=== PATIENT | female | born 1995 | race African-American/Black ===

== ENCOUNTER 2017-02-16 11:09 | Observation (INO) | payer MEDICAID ==
[~2017-02-16] VITALS: Ht 160 cm; Wt 113.4 kg
[2017-02-16 12:36] LABS: CLARITY URINE CLEAR (CLEAR); COLOR URINE YELLOW (YELLOW); KETONES URINE NEGATIVE (NEGATIVE); LEUKOCYTE ESTERASE URINE 2+ (NEGATIVE); NITRITE URINE NEGATIVE (NEGATIVE); OCCULT BLOOD URINE TRACE (NEGATIVE); PH URINE 7.5 (4.5-8.0); PROTEIN URINE NEGATIVE (NEGATIVE); UROBILINOGEN URINE 0.2 E.U./dL (0.2-1.0)
[2017-02-16] MEDS ORDERED: LACTATED RINGERS 1,000 ML IV SCH (13:30)
[2017-02-16] MEDS ORDERED: CEFAZOLIN 2,000 MG in SODIUM CHLORIDE 0.9% 100 ML IV SCH (14:30)
== END 2017-02-16 14:20 | disposition home or self-care (01) ==
LOC: L&D 11:09
PROVIDERS: ADMIT Obstetrics & Gynecology; ATTEND Obstetrics & Gynecology
DX: O26.893 Other specified pregnancy related conditions, third trimester (principal); R10.30 Lower abdominal pain, unspecified; O21.2 Late vomiting of pregnancy; Z3A.34 34 weeks gestation of pregnancy
CPT/HCPCS: 81001; 96365; 99281; G0378; J0690; J7120; 96360; 96361; J7050; J7060

== ENCOUNTER 2020-08-06 19:19 | Observation (INO) | payer MEDICAID ==
[~2020-08-06] VITALS: Ht 162.6 cm; Wt 109.3 kg
[2020-08-07] MEDS ORDERED: PNV1TABL76 MT
== END 2020-08-07 02:41 | disposition home or self-care (01) ==
LOC: 8 EST LDRP 19:19
PROVIDERS: ADMIT Obstetrics & Gynecology; ATTEND Obstetrics & Gynecology
DX: O26.893 Other specified pregnancy related conditions, third trimester (principal); R10.30 Lower abdominal pain, unspecified; Z3A.38 38 weeks gestation of pregnancy
CPT/HCPCS: 59025; 76805; 76818; G0378; 99281

== ENCOUNTER 2021-01-14 12:21 | Emergency (ER) | payer MEDICAID ==
[~2021-01-14] VITALS: Ht 165.1 cm; Wt 89.0 kg
[~2021-01-14 12:21] MED LIST: PNV1TABL76 MT
[2021-01-14 12:37] VITALS: BP 131/70
[2021-01-14] MEDS ORDERED: ACETAMINOPHEN 325MG TABLET PO ONE (15:00)
[2021-01-14] MEDS ORDERED: MUPI15CR11 TP (16:15)
== END 2021-01-14 16:23 | disposition home or self-care (01) ==
LOC: ER 12:21
DX: L73.9 Follicular disorder, unspecified (principal)
CPT/HCPCS: 73630; 81025; 99283